=== PATIENT | male | born 1990 | race Two or more races ===

== ENCOUNTER 2025-04-03 01:03 | Emergency (ER) | payer OTHER ==
[~2025-04-03] VITALS: Ht 167.6 cm; Wt 68.9 kg
[2025-04-03] MEDS ORDERED: DIETHYLPROPION25 MG PO (01:22)
[2025-04-03] MEDS ORDERED: KETOROLAC TROMETHAMINE 60 MG VIAL IM STA (03:20)
[2025-04-03] MEDS ORDERED: TRAMADOL HCL 50 MG TABLET PO STA (03:21)
[2025-04-03] MEDS ORDERED: ORPHENADRINE CITRATE 30 MG/ML AMPUL IM STA (03:21)
== END 2025-04-03 04:25 | disposition home or self-care (01) ==
LOC: ER 01:03
DX: M62.830 Muscle spasm of back (principal)